=== PATIENT | female | born 1995 | race Caucasian/White ===

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

== ENCOUNTER → 2018-06-30 | Outpatient (CLI) | payer OTHER ==
[2018-06-30 14:55] LABS: STREP SCREEN NEGATIVE (NEGATIVE)
== END ==
LOC: LAB 14:31
PROVIDERS: Family Medicine
DX: R50.9 Fever, unspecified (principal)

== ENCOUNTER → 2019-04-27 | Outpatient (CLI) | payer OTHER ==
[2019-04-27 10:53] LABS: BASO # 0.1 (0.02-0.10); EOS # 0.1 (0.04-0.40); EOS % 1.4 % (1.0-5.0); HEMATOCRIT 41.4 % (37.0-47.0); LYMPH# 1.4 (1.50-4.00); MEAN CELL VOLUME 85 fl (78-100); MEAN CORPUSCULAR HEMOGLOBIN 29 pg (27-31); MEAN CORPUSCULAR HGB CONC 34 g/dL (33-37); MEAN PLATELET VOLUME 10.6 fl (7.4-10.4); MONO # 0.5 (0.20-0.80); NEU # 3.1 (1.40-6.50); PLATELET COUNT 259 K/mm3 (130-400); RED BLOOD COUNT 4.86 M/mm3 (4.10-5.30); RED CELL DISTRIBUTION WIDTH 12.9 % (11.5-14.5); WHITE BLOOD COUNT 5.1 K/mm3 (4.8-10.8)
[2019-04-27 11:13] LABS: ALBUMIN 4.3 g/dL (3.5-5.0)
[2019-04-27 11:15] LABS: CALCIUM 9.6 mg/dL (8.3-10.5)
[2019-04-27 11:16] LABS: TOTAL PROTEIN 7.3 g/dL (6.4-8.3)
[2019-04-27 11:18] LABS: TOTAL BILIRUBIN 0.8 mg/dL (0.2-1.2)
[2019-04-27 11:40] LABS: URINE APPEARANCE CLEAR; URINE BILIRUBIN NEGATIVE (NEGATIVE); URINE BLOOD 50 ery/uL (NEGATIVE); URINE COLOR YELLOW; URINE GLUCOSE NEGATIVE (NEGATIVE); URINE KETONE NEGATIVE (NEGATIVE); URINE LEUKOCYTE ESTERASE NEGATIVE (NEGATIVE); URINE NITRATE NEGATIVE (NEGATIVE); URINE PROTEIN(semi-quant) TRACE mg/dL (NEGATIVE); URINE UROBILINOGEN NORMAL (NORMAL)
[2019-04-27 11:41] LABS: URINE MUCUS PRESENT (NOT PRESENT)
== END ==
LOC: LAB 10:38
PROVIDERS: Physician Assistant
DX: Z01.818 Encounter for other preprocedural examination (principal); M21.611 Bunion of right foot; M21.961 Unspecified acquired deformity of right lower leg

== ENCOUNTER → 2019-09-21 | Outpatient (CLI) | payer OTHER | LOC: LAB 11:23 | DX: T14.8XXA Other injury of unspecified body region, initial encounter (principal) ==

== ENCOUNTER → 2020-02-29 | Outpatient (CLI) | payer OTHER | LOC: RAD 13:00 | DX: R10.2 Pelvic and perineal pain (principal) ==

== ENCOUNTER → 2020-03-02 | Outpatient (CLI) | payer OTHER | LOC: RAD 18:53 | DX: M79.642 Pain in left hand (principal) ==

== ENCOUNTER → 2020-03-20 | Outpatient (CLI) | payer OTHER | LOC: RAD 14:42 | DX: R10.9 Unspecified abdominal pain (principal) | CPT/HCPCS: Q9967 ==

== ENCOUNTER → 2020-03-29 | Outpatient (CLI) | payer OTHER ==
[2020-03-29 23:53] LABS: PROGESTERONE 13.2 ng/mL (())
== END ==
LOC: LAB 13:44
PROVIDERS: Family Medicine
DX: R10.9 Unspecified abdominal pain (principal)

== ENCOUNTER → 2020-05-10 | Outpatient (CLI) | payer OTHER ==
[2020-05-10 09:42] LABS: URINE APPEARANCE CLOUDY; URINE COLOR YELLOW
[2020-05-10 09:43] LABS: URINE BILIRUBIN NEGATIVE (NEGATIVE); URINE BLOOD NEGATIVE (NEGATIVE); URINE GLUCOSE NEGATIVE (NEGATIVE); URINE KETONE NEGATIVE (NEGATIVE); URINE LEUKOCYTE ESTERASE NEGATIVE (NEGATIVE); URINE MUCUS PRESENT (NOT PRESENT); URINE NITRATE NEGATIVE (NEGATIVE); URINE PROTEIN(semi-quant) NEGATIVE (NEGATIVE); URINE UROBILINOGEN NORMAL (NORMAL)
== END ==
LOC: LAB 09:11 → RAD 09:11
PROVIDERS: Family Medicine
DX: N20.0 Calculus of kidney (principal)

== ENCOUNTER → 2020-05-22 | Outpatient (CLI) | payer OTHER | LOC: RAD 18:25 | DX: M79.671 Pain in right foot (principal); Z98.890 Other specified postprocedural states ==

== ENCOUNTER 2020-06-14 18:06 | Emergency (ER) | payer OTHER ==
[2020-06-14 19:35] LABS: BASO # 0.1 (0.02-0.10); EOS # 0.1 (0.04-0.40); EOS % 0.8 % (1.0-5.0); HEMATOCRIT 40.3 % (37.0-47.0); LYMPH# 2.7 (1.50-4.00); MEAN CELL VOLUME 87 fl (78-100); MEAN CORPUSCULAR HEMOGLOBIN 30 pg (27-31); MEAN CORPUSCULAR HGB CONC 35 g/dL (33-37); MEAN PLATELET VOLUME 10.6 fl (7.4-10.4); MONO # 0.9 (0.20-0.80); NEU # 5.6 (1.40-6.50); PLATELET COUNT 255 K/mm3 (130-400); RED BLOOD COUNT 4.64 M/mm3 (4.10-5.30); WHITE BLOOD COUNT 9.3 K/mm3 (4.8-10.8)
[2020-06-14 19:46] LABS: POTASSIUM 3.6 mmol/L (3.5-5.1)
[2020-06-14 19:47] LABS: CALCIUM 9.1 mg/dL (8.3-10.5)
[2020-06-14 20:48] VITALS: BP 110/79
== END 2020-06-14 20:48 | disposition home or self-care (01) ==
LOC: ED 18:06
PROVIDERS: Physician Assistant
DX: O20.9 Hemorrhage in early pregnancy, unspecified (principal); O99.611 Diseases of the digestive system complicating pregnancy, first trimester; K59.00 Constipation, unspecified; Z3A.08 8 weeks gestation of pregnancy; Z87.442 Personal history of urinary calculi; Z88.1 Allergy status to other antibiotic agents

== ENCOUNTER → 2020-06-16 | Outpatient (CLI) | payer OTHER ==
[2020-06-14 20:48] VITALS: BP 110/79
[~2020-06-16] MED LIST: B COMPLEX1 EACH PO; MULTI-VITAMIN1 EACH PO; ONDANSETRON ODT8 MG PO; UNISOM25 M1 PO
== END ==
LOC: LAB 17:43
DX: Z33.1 Pregnant state, incidental (principal)

== ENCOUNTER 2020-07-11 14:28 | Emergency (ER) | payer OTHER ==
[2020-07-11] MEDS ORDERED: UNISOM25 M1 PO (14:43)
[2020-07-11] MEDS ORDERED: MULTI-VITAMIN1 EACH PO (14:43)
[2020-07-11] MEDS ORDERED: B COMPLEX1 EACH PO (14:44)
[2020-07-11 15:23] LABS: EOS % 0.2 % (1.0-5.0); HEMATOCRIT 39.2 % (37.0-47.0); HEMOGLOBIN 13.5 g/dL (12.5-16.0); MEAN CELL VOLUME 87 fl (78-100); MEAN CORPUSCULAR HEMOGLOBIN 30 pg (27-31); MEAN CORPUSCULAR HGB CONC 34 g/dL (33-37); MEAN PLATELET VOLUME 10.1 fl (7.4-10.4); MONO # 0.6 (0.20-0.80); NEU # 6.6 (1.40-6.50); PLATELET COUNT 247 K/mm3 (130-400); RED BLOOD COUNT 4.52 M/mm3 (4.10-5.30); RED CELL DISTRIBUTION WIDTH 12.1 % (11.5-14.5); WHITE BLOOD COUNT 8.3 K/mm3 (4.8-10.8)
[2020-07-11 15:31] LABS: ALBUMIN 3.9 g/dL (3.5-5.0)
[2020-07-11 15:32] LABS: POTASSIUM 4.1 mmol/L (3.5-5.1); SODIUM 137 mmol/L (136-145)
[2020-07-11 15:33] LABS: CALCIUM 9.3 mg/dL (8.3-10.5)
[2020-07-11 15:34] LABS: GLUCOSE 98 mg/dL (65-105); TOTAL PROTEIN 6.8 g/dL (6.4-8.3)
[2020-07-11 15:35] LABS: CARBON DIOXIDE 22 mmol/L (22-29)
[2020-07-11 15:36] LABS: TOTAL BILIRUBIN 0.7 mg/dL (0.2-1.2)
[2020-07-11 15:39] LABS: AST-SGOT 13 U/L (5-34)
[2020-07-11 15:40] LABS: ALT/SGPT 11 U/L (0-55)
[2020-07-11 16:08] LABS: TROPONIN-I < 0.03 ng/mL (<0.030)
[2020-07-11 16:54] LABS: PH-URINE 7.5 (5.0 - 8.0); URINE APPEARANCE CLOUDY; URINE BILIRUBIN NEGATIVE (NEGATIVE); URINE BLOOD NEGATIVE (NEGATIVE); URINE COLOR YELLOW; URINE GLUCOSE NEGATIVE (NEGATIVE); URINE KETONE 2+ (NEGATIVE); URINE LEUKOCYTE ESTERASE TRACE (NEGATIVE); URINE NITRATE NEGATIVE (NEGATIVE); URINE PROTEIN(semi-quant) TRACE mg/dL (NEGATIVE); URINE UROBILINOGEN NORMAL (NORMAL); URINE WBC 0-1 /hpf (0-3)
[2020-07-11 16:55] LABS: URINE MUCUS PRESENT (NOT PRESENT)
[2020-07-11] MEDS ORDERED: ONDANSETRON ODT8 MG PO (16:56)
[2020-07-11 17:06] VITALS: BP 100/74
== END 2020-07-11 17:07 | disposition home or self-care (01) ==
LOC: ED 14:28
PROVIDERS: Nurse Practitioner Family
DX: O9A.211 Injury, poisoning and certain other consequences of external causes complicating pregnancy, first trimester (principal); S09.90XA Unspecified injury of head, initial encounter; O26.811 Pregnancy related exhaustion and fatigue, first trimester; O99.810 Abnormal glucose complicating pregnancy; E16.2 Hypoglycemia, unspecified; O99.281 Endocrine, nutritional and metabolic diseases complicating pregnancy, first trimester; E86.9 Volume depletion, unspecified; O21.9 Vomiting of pregnancy, unspecified; Z3A.11 11 weeks gestation of pregnancy; Z87.442 Personal history of urinary calculi; Z88.1 Allergy status to other antibiotic agents; X58.XXXA Exposure to other specified factors, initial encounter
CPT/HCPCS: J2765; J7030

== ENCOUNTER → 2020-09-13 | Outpatient (CLI) | payer OTHER | LOC: LAB 16:58 | DX: N89.8 Other specified noninflammatory disorders of vagina (principal) ==

== ENCOUNTER → 2021-05-31 | Outpatient (CLI) | payer OTHER | LOC: LAB 10:19 | DX: U07.1 COVID-19 (principal) ==

== ENCOUNTER 2021-07-16 08:05 | Emergency (ER) | payer OTHER ==
[2021-07-16 08:16] VITALS: BP 106/80
[2021-07-16 09:11] LABS: BASO # 0.05 K/mm3 (0.02-0.10); EOS # 0.07 K/mm3 (0.04-0.40); EOS % 1.2 % (1.0-5.0); HEMATOCRIT 43.2 % (37.0-47.0); HEMOGLOBIN 14.6 g/dL (12.5-16.0); LYMPH# 1.76 K/mm3 (1.50-4.00); MEAN CELL VOLUME 87 fl (78-100); MEAN CORPUSCULAR HEMOGLOBIN 29 pg (27-31); MEAN CORPUSCULAR HGB CONC 34 g/dL (33-37); MEAN PLATELET VOLUME 11.7 fl (7.4-10.4); MONO # 0.44 K/mm3 (0.20-0.80); NEU # 3.32 K/mm3 (1.40-6.50); PLATELET COUNT 256 K/mm3 (130-400); RED BLOOD COUNT 4.99 M/mm3 (4.10-5.30); RED CELL DISTRIBUTION WIDTH 12.4 % (11.5-14.5); WHITE BLOOD COUNT 5.7 K/mm3 (4.8-10.8)
[2021-07-16 09:22] LABS: ALBUMIN 4.4 g/dL (3.5-5.0); URINE APPEARANCE CLOUDY; URINE BILIRUBIN NEGATIVE (NEGATIVE); URINE BLOOD TRACE (NEGATIVE); URINE COLOR YELLOW; URINE GLUCOSE NEGATIVE (NEGATIVE); URINE KETONE NEGATIVE (NEGATIVE); URINE LEUKOCYTE ESTERASE 1+ (NEGATIVE); URINE NITRATE NEGATIVE (NEGATIVE); URINE PROTEIN(semi-quant) TRACE (NEGATIVE); URINE UROBILINOGEN NORMAL (NORMAL); URINE WBC 16-30 /hpf (0-3)
[2021-07-16 09:23] LABS: POTASSIUM 3.8 mmol/L (3.5-5.1); SODIUM 139 mmol/L (136-145)
[2021-07-16 09:24] LABS: CALCIUM 9.6 mg/dL (8.3-10.5)
[2021-07-16 09:25] LABS: GLUCOSE 95 mg/dL (65-105); TOTAL PROTEIN 7.2 g/dL (6.4-8.3)
[2021-07-16 09:26] LABS: CARBON DIOXIDE 24 mmol/L (22-29)
[2021-07-16 09:27] LABS: TOTAL BILIRUBIN 1.1 mg/dL (0.2-1.2)
[2021-07-16 09:30] LABS: AST-SGOT 14 U/L (5-34)
[2021-07-16 09:31] LABS: ALT/SGPT 10 U/L (0-55)
[2021-07-16 09:36] LABS: LIPASE < 4 U/L (8-78)
[2021-07-16] MEDS ORDERED: BACTRIM DS TAB1 EACH PO (10:32)
[2021-07-16] MEDS ORDERED: ZOFRAN ODT4 MG PO (10:33)
== END 2021-07-16 10:45 | disposition home or self-care (01) ==
LOC: ED 08:05
PROVIDERS: Nurse Practitioner
DX: N39.0 Urinary tract infection, site not specified (principal); Z87.442 Personal history of urinary calculi; Z88.1 Allergy status to other antibiotic agents; Z32.02 Encounter for pregnancy test, result negative
CPT/HCPCS: J2405; J7030

== ENCOUNTER → 2021-07-19 | Outpatient (CLI) | payer OTHER ==
[~2021-07-19] MED LIST changes: +BACTRIM DS TAB1 EACH PO; +ZOFRAN ODT4 MG PO
== END ==
LOC: LAB 11:49
DX: N39.0 Urinary tract infection, site not specified (principal)

== ENCOUNTER → 2021-10-23 | Outpatient (CLI) | payer OTHER, BC ==
[2021-10-23 09:20] LABS: BASO # 0.05 K/mm3 (0.02-0.10); EOS # 0.11 K/mm3 (0.04-0.40); EOS % 1.3 % (1.0-5.0); HEMATOCRIT 40.6 % (37.0-47.0); LYMPH# 1.19 K/mm3 (1.50-4.00); MEAN CELL VOLUME 86 fl (78-100); MEAN CORPUSCULAR HEMOGLOBIN 30 pg (27-31); MEAN CORPUSCULAR HGB CONC 35 g/dL (33-37); MEAN PLATELET VOLUME 10.7 fl (7.4-10.4); MONO # 0.57 K/mm3 (0.20-0.80); NEU # 6.22 K/mm3 (1.40-6.50); PLATELET COUNT 279 K/mm3 (130-400); RED BLOOD COUNT 4.74 M/mm3 (4.10-5.30); RED CELL DISTRIBUTION WIDTH 12.3 % (11.5-14.5); WHITE BLOOD COUNT 8.2 K/mm3 (4.8-10.8)
== END ==
LOC: LAB 08:55
PROVIDERS: Nurse Practitioner Family
DX: J02.9 Acute pharyngitis, unspecified (principal); R59.0 Localized enlarged lymph nodes

== ENCOUNTER 2021-11-26 09:12 | Emergency (ER) | payer OTHER, BC ==
[~2021-11-26] VITALS: Ht 162.6 cm; Wt 62.3 kg
[2021-11-26 10:08] LABS: BASO # 0.04 K/mm3 (0.02-0.10); EOS # 0.03 K/mm3 (0.04-0.40); EOS % 0.4 % (1.0-5.0); HEMATOCRIT 39.6 % (37.0-47.0); HEMOGLOBIN 13.7 g/dL (12.5-16.0); LYMPH# 1.27 K/mm3 (1.50-4.00); MEAN CELL VOLUME 86 fl (78-100); MEAN CORPUSCULAR HEMOGLOBIN 30 pg (27-31); MEAN CORPUSCULAR HGB CONC 35 g/dL (33-37); MEAN PLATELET VOLUME 10.3 fl (7.4-10.4); MONO # 0.42 K/mm3 (0.20-0.80); NEU # 5.25 K/mm3 (1.40-6.50); PLATELET COUNT 245 K/mm3 (130-400); RED BLOOD COUNT 4.62 M/mm3 (4.10-5.30)
[2021-11-26 10:13] LABS: ALBUMIN 3.9 g/dL (3.5-5.0)
[2021-11-26 10:15] LABS: TOTAL PROTEIN 6.9 g/dL (6.4-8.3)
[2021-11-26 10:17] LABS: TOTAL BILIRUBIN 0.8 mg/dL (0.2-1.2)
[2021-11-26 10:57] LABS: URINE APPEARANCE HAZY; URINE BILIRUBIN NEGATIVE (NEGATIVE); URINE BLOOD NEGATIVE (NEGATIVE); URINE COLOR YELLOW; URINE GLUCOSE NEGATIVE (NEGATIVE); URINE KETONE 1+ (NEGATIVE); URINE LEUKOCYTE ESTERASE 1+ (NEGATIVE); URINE NITRATE NEGATIVE (NEGATIVE); URINE PROTEIN(semi-quant) NEGATIVE (NEGATIVE); URINE UROBILINOGEN NORMAL (NORMAL)
[2021-11-26 10:58] LABS: URINE MUCUS PRESENT (NOT PRESENT)
[2021-11-26] MEDS ORDERED: MACROBID 100 M100 MG PO (11:38)
[2021-11-26] MEDS ORDERED: ZOFRAN ODT4 MG PO (11:39)
[2021-11-26 11:42] VITALS: BP 110/68
== END 2021-11-26 11:43 | disposition home or self-care (01) ==
LOC: ED 09:12
PROVIDERS: Nurse Practitioner
DX: O23.41 Unspecified infection of urinary tract in pregnancy, first trimester (principal); N39.0 Urinary tract infection, site not specified; Z3A.10 10 weeks gestation of pregnancy; Z88.1 Allergy status to other antibiotic agents; Z28.310 Unvaccinated for COVID-19
CPT/HCPCS: J7030

== ENCOUNTER 2022-05-17 07:57 | Outpatient (RCR) | payer OTHER, BC ==
[2022-05-10 13:01] VITALS: BP 120/75
[2022-05-10 13:39] VITALS: BP 108/70
[~2022-05-17] VITALS: Ht 162.6 cm; Wt 62.3 kg
[~2022-05-17 07:57] MED LIST changes: +BACTRIM 400 MG-1 TA1 PO; +FERROUS SULFAT325 M1 PO; +MACROBID 100 M100 MG PO
[2022-05-17 08:02] VITALS: BP 112/73
[2022-05-17 08:39] VITALS: BP 106/69
== END 2022-05-21 | disposition home or self-care (01) ==
LOC: AMSURD
DX: O99.013 Anemia complicating pregnancy, third trimester (principal); Z3A.00 Weeks of gestation of pregnancy not specified
CPT/HCPCS: J1756

== ENCOUNTER → 2023-03-19 | Outpatient (CLI) | payer OTHER, BC ==
[2023-03-19 17:01] LABS: BASO # 0.05 K/mm3 (0.02-0.10); EOS # 0.08 K/mm3 (0.04-0.40); EOS % 1.2 % (1.0-5.0); HEMATOCRIT 45.3 % (37.0-47.0); HEMOGLOBIN 14.8 g/dL (12.5-16.0); LYMPH# 2.42 K/mm3 (1.50-4.00); MEAN CELL VOLUME 87 fl (78-100); MEAN CORPUSCULAR HEMOGLOBIN 28 pg (27-31); MEAN CORPUSCULAR HGB CONC 33 g/dL (33-37); MEAN PLATELET VOLUME 11.1 fl (7.4-10.4); NEU # 3.74 K/mm3 (1.40-6.50); PLATELET COUNT 298 K/mm3 (130-400); RED BLOOD COUNT 5.22 M/mm3 (4.10-5.30); RED CELL DISTRIBUTION WIDTH 12.2 % (11.5-14.5); WHITE BLOOD COUNT 6.8 K/mm3 (4.8-10.8)
== END ==
LOC: LAB 16:27
PROVIDERS: Family Medicine
DX: Z00.00 Encounter for general adult medical examination without abnormal findings (principal); E78.5 Hyperlipidemia, unspecified; J45.990 Exercise induced bronchospasm; N92.1 Excessive and frequent menstruation with irregular cycle; J30.2 Other seasonal allergic rhinitis; D50.9 Iron deficiency anemia, unspecified; M67.432 Ganglion, left wrist